=== PATIENT | female | born 1980 | race African-American/Black ===

== ENCOUNTER 2016-05-24 11:58 | Emergency (ER) | payer OTHER ==
[~2016-05-24] VITALS: Ht 177.8 cm; Wt 78.0 kg
[2016-05-24 12:08] VITALS: BP 107/71; PULSE 57; RESP 16; TEMP 98.3; O2SAT 99
[2016-05-24] MEDS ORDERED: BIRTH CONTROL PILLS (14:50)
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
[2016-05-24] MEDS ORDERED: SODIUM CHLORIDE 0.9% FLUSH 5 ML FLUSH IVF PRN (15:00)
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
[2016-05-24 15:56] LABS: POTASSIUM 3.7 MEQ/L (3.5-5.1)
[2016-05-24 15:59] LABS: BICARBONATE 26.7 MEQ/L (21.0-32.0)
[2016-05-24 16:20] VITALS: BP 112/69; PULSE 60; RESP 16; O2SAT 100
[2016-05-24] MEDS ORDERED: IOHEXOL 350 MG/ML 10 ML VIAL (for RAD DIAG) IV ONE (16:28)
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
[2016-05-24] MEDS ORDERED: CYCL1TAB29 PO (17:35)
[2016-05-24] MEDS ORDERED: NAPR500 PO (17:35)
== END 2016-05-24 17:49 | disposition home or self-care (01) ==
LOC: PHED 11:58 → PHEFT 17:49
DX: S20.212A Contusion of left front wall of thorax, initial encounter (principal); R10.12 Left upper quadrant pain; V03.19XA Pedestrian with other conveyance injured in collision with car, pick-up truck or van in traffic accident, initial encounter; Y93.89 Activity, other specified; Y92.410 Unspecified street and highway as the place of occurrence of the external cause
CPT/HCPCS: 71101; 74177; 80048; 84703; 94150; 99284; Q9967